=== PATIENT | female | born 1980 | race Two or more races ===

== ENCOUNTER → 2024-07-22 | Outpatient (CLI) | payer MEDICAID, SELFPAY ==
--- NOTE | 2024-07-22 12:06 | XR_ITS ---
Examination: Lumbar spine 3 views Technique one AP lateral coned lateral lower lumbar spine 3 views Exam date and time: July 22, 2024 1223 hours INDICATIONS: Acute bilateral low back pain radiating to the legs beginning 4 days ago. FINDINGS: Adequate alignment lumbar vertebral bodies No lumbar fracture Moderate disc narrowing L5-S1 IMPRESSION: Moderate disc narrowing L5-S1
== END | disposition home or self-care (01) ==
PROVIDERS: PCP Nurse Practitioner Family; Referring Provider Nurse Practitioner Family; Visit Provider Nurse Practitioner Family
DX: M48.07 Spinal stenosis, lumbosacral region (principal)
CPT/HCPCS: 72100

== ENCOUNTER → 2024-09-30 | Outpatient (CLI) | payer MEDICAID, SELFPAY ==
--- NOTE | 2024-09-30 12:30 | XR_ITS ---
Examination: MRI lumbar spine without contrast Date and time of exam: September 30, 2024 1222 hrs. Indications: Lower back pain radiating down the left upper leg beginning 4 months ago Technique: Multiple MRI axial and sagittal sections lumbar spine. Sagittal T2-weighted images, TR 3500, TE 118 T1 weighted transverse sections, TR 688 T8.5, T2-weighted sagittal sections T1 weighted sagittal sections TR 621, TE 30 T2 axial sections, TR 4, 190, TE 84. Findings: Adequate alignment lumbar vertebral bodies on the lateral view Heterogeneous marrow signal involving the lumbar vertebral bodies No lumbar fracture No lumbar disc narrowing Axial images demonstrate no focal lumbar disc protrusion Impression: No lumbar fracture No focal lumbar disc protrusion Heterogeneous marrow signal involving the lumbar vertebral bodies, clinical correlation advised Recommend this patient return for MRI lumbar spine post contrast to exclude early osseous metastatic disease
== END | disposition home or self-care (01) ==
PROVIDERS: PCP Nurse Practitioner Family; Referring Provider Nurse Practitioner Family; Visit Provider Nurse Practitioner Family
DX: M54.42 Lumbago with sciatica, left side (principal)
CPT/HCPCS: 72148